=== PATIENT | male | born 1970 | race Caucasian/White ===

== ENCOUNTER → 2018-03-10 09:56 | Outpatient (CLI) | payer BC, SELFPAY ==
[2018-03-10 10:59] LABS: Add Manual Diff / Slide Review NO; Basophils Percent Auto 0.8 % (0-2); Eosinophils Percent Auto 0.3 % (2-4); Hematocrit 44.8 % (41-53); Hemoglobin 15.7 g/dL (13.5-17.5); Lymphocytes Percent Auto 16.5 % (25-40); Mean Corpuscular HGB Conc 35.1 % (30-36); Mean Corpuscular Hemoglobin 33.2 PG (26-34); Mean Corpuscular Volume 94.5 fL (80-100); Monocytes Percent Auto 6.7 % (3-14); Neutrophils Absolute Auto 4100 /uL (3000-5900); Neutrophils Percent Auto 75.7 % (50-75); Platelet Count 242 X10^3/uL (150-400); Red Blood Cell Count 4.74 X10^6/uL (4.5-5.9); Red Cell Distribution Width 12.9 % (11.6-14.8); White Blood Cell Count 5.3 X10^3/uL (4.5-11.0)
[2018-03-10 11:14] LABS: Alanine Aminotransferase 44 IU/L (21-72); Albumin 4.4 g/dL (3.5-5.0); Albumin Globulin Ratio 1.8 (1.0-2.8); Alkaline Phosphatase 78 U/L (38-126); Aspartate Aminotransferase 23 IU/L (17-59); BUN Creatinine Ratio 12.2 (6-22); Bilirubin Total 0.6 mg/dL (0.2-1.3); Blood Urea Nitrogen 11 mg/dL (9-20); Calcium 9.5 mg/dL (8.4-10.2); Carbon Dioxide 26 mmol/L (22-32); Chloride 102 mmol/L (98-107); Estimated Glomerular Filt Rate > 60.0 mL/min (>60); Globulin 2.4 g/dL (1.7-4.1); Glucose 92 mg/dL (70-100); HEMOLYSIS < 15 (0-50); Potassium 4.8 mmol/L (3.4-5.1); Sodium 140 mmol/L (137-145); Total Protein 6.8 g/dL (6.3-8.2)
[2018-03-10 11:18] LABS: C-Reactive Protein Quant < 0.5 mg/dL (<1.0)
[2018-03-10 11:24] LABS: Erythrocyte Sedimentation Rate 1 MM/HR (0-15)
== END ==
PROVIDERS: PCP Family Medicine; Visit Provider Internal Medicine Rheumatology
DX: L40.50 Arthropathic psoriasis, unspecified (principal); Z79.899 Other long term (current) drug therapy
CPT/HCPCS: 36415; 80053; 85025; 85651; 86140

== ENCOUNTER → 2018-06-22 07:21 | Outpatient (CLI) | payer BC, SELFPAY ==
[2018-06-22 07:48] LABS: Add Manual Diff / Slide Review NO; Basophils Percent Auto 0.5 % (0-2); Eosinophils Percent Auto 0.6 % (2-4); Hematocrit 44.6 % (41-53); Hemoglobin 15.5 g/dL (13.5-17.5); Lymphocytes Percent Auto 20.6 % (25-40); Mean Corpuscular HGB Conc 34.8 % (30-36); Mean Corpuscular Hemoglobin 33.1 PG (26-34); Monocytes Percent Auto 6.7 % (3-14); Neutrophils Absolute Auto 3000 /uL (3000-5900); Neutrophils Percent Auto 71.6 % (50-75); Platelet Count 242 X10^3/uL (150-400); Red Blood Cell Count 4.69 X10^6/uL (4.5-5.9); Red Cell Distribution Width 13.2 % (11.6-14.8); White Blood Cell Count 4.2 X10^3/uL (4.5-11.0)
[2018-06-22 08:06] LABS: Alanine Aminotransferase 36 IU/L (21-72); Albumin 4.2 g/dL (3.5-5.0); Albumin Globulin Ratio 1.8 (1.0-2.8); Alkaline Phosphatase 72 U/L (38-126); Aspartate Aminotransferase 23 IU/L (17-59); BUN Creatinine Ratio 11.1 (6-22); Bilirubin Total 0.8 mg/dL (0.2-1.3); Blood Urea Nitrogen 10 mg/dL (9-20); Calcium 8.7 mg/dL (8.4-10.2); Carbon Dioxide 33 mmol/L (22-32); Chloride 102 mmol/L (98-107); Estimated Glomerular Filt Rate > 60.0 mL/min (>60); Globulin 2.4 g/dL (1.7-4.1); Glucose 158 mg/dL (70-100); HEMOLYSIS < 15 (0-50); Potassium 4.5 mmol/L (3.4-5.1); Sodium 142 mmol/L (137-145); Total Protein 6.6 g/dL (6.3-8.2)
[2018-06-22 08:07] LABS: C-Reactive Protein Quant < 0.5 mg/dL (<1.0)
[2018-06-22 08:26] LABS: Erythrocyte Sedimentation Rate 2 MM/HR (0-15)
== END ==
PROVIDERS: PCP Family Medicine; Visit Provider Nurse Practitioner
DX: L40.50 Arthropathic psoriasis, unspecified (principal); Z79.899 Other long term (current) drug therapy
CPT/HCPCS: 36415; 80053; 85025; 85651; 86140

== ENCOUNTER → 2018-10-08 07:11 | Outpatient (CLI) | payer BC, SELFPAY ==
[2018-10-08 07:45] LABS: Add Manual Diff / Slide Review NO; Basophils Percent Auto 0.5 % (0-2); Eosinophils Percent Auto 0.8 % (2-4); Hematocrit 46.4 % (41-53); Lymphocytes Percent Auto 24.9 % (25-40); Mean Corpuscular HGB Conc 34.6 % (30-36); Mean Corpuscular Hemoglobin 32.5 PG (26-34); Mean Corpuscular Volume 93.8 fL (80-100); Monocytes Percent Auto 8.7 % (3-14); Neutrophils Absolute Auto 3100 /uL (1500-7000); Neutrophils Percent Auto 65.1 % (50-75); Platelet Count 228 X10^3/uL (150-400); Red Blood Cell Count 4.94 X10^6/uL (4.5-5.9); Red Cell Distribution Width 12.9 % (11.6-14.8); White Blood Cell Count 4.8 X10^3/uL (4.5-11.0)
[2018-10-08 07:56] LABS: Alanine Aminotransferase 53 IU/L (21-72); Albumin 4.4 g/dL (3.5-5.0); Albumin Globulin Ratio 1.6 (1.0-2.8); Alkaline Phosphatase 68 U/L (38-126); Aspartate Aminotransferase 33 IU/L (17-59); BUN Creatinine Ratio 13.3 (6-22); Bilirubin Total 0.6 mg/dL (0.2-1.3); Blood Urea Nitrogen 12 mg/dL (9-20); Calcium 8.9 mg/dL (8.4-10.2); Carbon Dioxide 27 mmol/L (22-32); Chloride 105 mmol/L (98-107); Estimated Glomerular Filt Rate > 60.0 mL/min (>60); Globulin 2.7 g/dL (1.7-4.1); Glucose 117 mg/dL (70-100); HEMOLYSIS < 15 (0-50); Potassium 3.8 mmol/L (3.4-5.1); Sodium 140 mmol/L (137-145); Total Protein 7.1 g/dL (6.3-8.2)
[2018-10-08 08:04] LABS: C-Reactive Protein Quant < 0.5 mg/dL (<1.0)
[2018-10-08 08:21] LABS: Erythrocyte Sedimentation Rate 1 MM/HR (0-15)
== END ==
PROVIDERS: Family Provider Family Medicine; PCP Family Medicine; Visit Provider Internal Medicine Rheumatology
DX: L40.50 Arthropathic psoriasis, unspecified (principal); Z79.899 Other long term (current) drug therapy
CPT/HCPCS: 36415; 80053; 85025; 85651; 86140

== ENCOUNTER → 2018-12-29 08:06 | Outpatient (CLI) | payer BC, SELFPAY ==
[2018-12-29 08:43] LABS: Add Manual Diff / Slide Review NO; Basophils Absolute Auto 0 /uL (0-100); Basophils Percent Auto 0.6 % (0-2); Eosinophils Absolute Auto 0 /uL (0-450); Eosinophils Percent Auto 0.9 % (2-4); Hematocrit 47.5 % (41-53); Hemoglobin 16.6 g/dL (13.5-17.5); Lymphocytes Absolute Auto 1100 /uL (1100-4500); Lymphocytes Percent Auto 21.1 % (25-40); Mean Corpuscular Hemoglobin 32.7 PG (26-34); Mean Corpuscular Volume 93.6 fL (80-100); Monocytes Absolute Auto 400 /uL (0-900); Monocytes Percent Auto 7.9 % (3-14); Neutrophils Absolute Auto 3700 /uL (1500-7000); Neutrophils Percent Auto 69.5 % (50-75); Platelet Count 231 X10^3/uL (150-400); Red Blood Cell Count 5.07 X10^6/uL (4.5-5.9); Red Cell Distribution Width 13.8 % (11.6-14.8); White Blood Cell Count 5.4 X10^3/uL (4.5-11.0)
[2018-12-29 08:56] LABS: Alanine Aminotransferase 32 IU/L (21-72); Albumin 4.4 g/dL (3.5-5.0); Albumin Globulin Ratio 1.8 (1.0-2.8); Alkaline Phosphatase 72 U/L (38-126); Aspartate Aminotransferase 20 IU/L (17-59); Bilirubin Total 0.5 mg/dL (0.2-1.3); Blood Urea Nitrogen 20 mg/dL (9-20); Carbon Dioxide 27 mmol/L (22-32); Chloride 101 mmol/L (98-107); Estimated Glomerular Filt Rate > 60.0 mL/min (>60); Globulin 2.5 g/dL (1.7-4.1); Glucose 122 mg/dL (70-100); HEMOLYSIS 18 (0-50); Potassium 4.2 mmol/L (3.4-5.1); Sodium 139 mmol/L (137-145); Total Protein 6.9 g/dL (6.3-8.2)
[2018-12-29 09:02] LABS: C-Reactive Protein Quant < 0.5 mg/dL (<1.0)
[2018-12-29 09:06] LABS: Erythrocyte Sedimentation Rate 1 MM/HR (0-15)
== END ==
PROVIDERS: PCP Family Medicine; Visit Provider Internal Medicine Rheumatology
DX: L40.50 Arthropathic psoriasis, unspecified (principal); Z79.899 Other long term (current) drug therapy
CPT/HCPCS: 36415; 80053; 85025; 85651; 86140

== ENCOUNTER → 2019-04-27 09:24 | Outpatient (CLI) | payer BC, SELFPAY ==
[2019-04-27 09:44] LABS: Add Manual Diff / Slide Review NO; Basophils Absolute Auto 0 /uL (0-100); Basophils Percent Auto 0.3 % (0-2); Eosinophils Absolute Auto 0 /uL (0-450); Eosinophils Percent Auto 0.6 % (2-4); Hematocrit 47.6 % (41-53); Hemoglobin 16.7 g/dL (13.5-17.5); Lymphocytes Absolute Auto 1300 /uL (1100-4500); Lymphocytes Percent Auto 22.4 % (25-40); Mean Corpuscular Hemoglobin 32.8 PG (26-34); Mean Corpuscular Volume 93.7 fL (80-100); Monocytes Absolute Auto 500 /uL (0-900); Monocytes Percent Auto 8.5 % (3-14); Neutrophils Absolute Auto 4100 /uL (1500-7000); Neutrophils Percent Auto 68.2 % (50-75); Platelet Count 246 X10^3/uL (150-400); Red Blood Cell Count 5.08 X10^6/uL (4.5-5.9); Red Cell Distribution Width 13.3 % (11.6-14.8)
[2019-04-27 10:07] LABS: Erythrocyte Sedimentation Rate 1 MM/HR (0-15)
[2019-04-27 10:10] LABS: Alanine Aminotransferase 46 IU/L (21-72); Albumin 4.6 g/dL (3.5-5.0); Albumin Globulin Ratio 1.9 (1.0-2.8); Alkaline Phosphatase 71 U/L (38-126); Aspartate Aminotransferase 36 IU/L (17-59); BUN Creatinine Ratio 15.6 (6-22); Blood Urea Nitrogen 14 mg/dL (9-20); Calcium 9.3 mg/dL (8.4-10.2); Carbon Dioxide 27 mmol/L (22-32); Chloride 98 mmol/L (98-107); Estimated Glomerular Filt Rate > 60.0 mL/min (>60); Globulin 2.4 g/dL (1.7-4.1); Glucose 116 mg/dL (70-100); HEMOLYSIS 16 (0-50); Potassium 4.2 mmol/L (3.4-5.1); Sodium 137 mmol/L (137-145)
[2019-04-27 10:30] LABS: C-Reactive Protein Quant < 0.5 mg/dL (<1.0)
== END ==
PROVIDERS: PCP Family Medicine; Visit Provider Nurse Practitioner
DX: L40.50 Arthropathic psoriasis, unspecified (principal); Z79.899 Other long term (current) drug therapy
CPT/HCPCS: 36415; 80053; 85025; 85651; 86140

== ENCOUNTER → 2019-08-17 09:31 | Outpatient (CLI) | payer BC, SELFPAY ==
[2019-08-17 10:52] LABS: Add Manual Diff / Slide Review NO; Basophils Absolute Auto 0 /uL (0-100); Basophils Percent Auto 0.6 % (0-2); Eosinophils Absolute Auto 0 /uL (0-450); Eosinophils Percent Auto 0.5 % (2-4); Hematocrit 45.5 % (41-53); Hemoglobin 15.9 g/dL (13.5-17.5); Lymphocytes Absolute Auto 1100 /uL (1100-4500); Lymphocytes Percent Auto 25.1 % (25-40); Mean Corpuscular Hemoglobin 32.5 PG (26-34); Monocytes Absolute Auto 300 /uL (0-900); Monocytes Percent Auto 6.7 % (3-14); Neutrophils Absolute Auto 3000 /uL (1500-7000); Neutrophils Percent Auto 67.1 % (50-75); Platelet Count 263 X10^3/uL (150-400); Red Blood Cell Count 4.89 X10^6/uL (4.5-5.9); Red Cell Distribution Width 13.3 % (11.6-14.8); White Blood Cell Count 4.4 X10^3/uL (4.5-11.0)
[2019-08-17 11:02] LABS: Alanine Aminotransferase 35 IU/L (<50); Albumin 4.3 g/dL (3.5-5.0); Albumin Globulin Ratio 1.8 (1.0-2.8); Alkaline Phosphatase 62 U/L (38-126); Aspartate Aminotransferase 34 IU/L (17-59); BUN Creatinine Ratio 16.7 (6-22); Bilirubin Total 0.7 mg/dL (0.2-1.3); Blood Urea Nitrogen 15 mg/dL (9-20); Carbon Dioxide 29 mmol/L (22-32); Chloride 101 mmol/L (98-107); Estimated Glomerular Filt Rate > 60.0 mL/min (>60); Globulin 2.4 g/dL (1.7-4.1); Glucose 125 mg/dL (70-100); HEMOLYSIS 43 (0-50); Sodium 138 mmol/L (137-145); Total Protein 6.7 g/dL (6.3-8.2)
[2019-08-17 11:15] LABS: Erythrocyte Sedimentation Rate 1 MM/HR (0-15)
[2019-08-17 11:16] LABS: C-Reactive Protein Quant < 0.5 mg/dL (<1.0)
== END ==
PROVIDERS: PCP Family Medicine; Visit Provider Nurse Practitioner
DX: Z79.899 Other long term (current) drug therapy (principal); L40.50 Arthropathic psoriasis, unspecified
CPT/HCPCS: 36415; 80053; 85025; 85651; 86140

== ENCOUNTER → 2020-09-02 13:16 | Outpatient (CLI) | payer BC, SELFPAY ==
[2020-09-02 14:18] LABS: COVID19 -Nasal RAPID Negative (Negative)
== END ==
PROVIDERS: PCP Family Medicine; Visit Provider Physician Assistant
DX: Z11.59 Encounter for screening for other viral diseases (principal)
CPT/HCPCS: 87635

== ENCOUNTER 2020-09-04 12:44 | Day surgery (SDC) | payer BC, SELFPAY ==
--- NOTE | 2020-09-04 11:51 | P.HP_ITS ---
History of Present Illness History of Present Illness Date Patient Seen: 09/04/20 Chief complaint: SDC Narrative: 50 Years Old Male seen today for consideration of a screening colonoscopy. There have been no lower GI symptoms suggesting disease such as change in bowel habits, bleeding, abdominal pain or anemia. His mother has colon polyps. Overall health issues have been stable, including no major cardiac events for at least 6 weeks. 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 Children: Karrie (2002), April (2005) Occupation: [employer] Education: Masters 4-5 beers over the weekend Patient History Medical History Fatigue (~2017) Hypertension Hypogonadism, male Insomnia Obstructive sleep apnea (~01/2019) Psoriatic arthropathy Snoring (~2017) Family & Social History Tobacco & Substance use: Smoking Status Never smoker alcohol intake current Meds Home Medications and Allergies Home Medications Medication Instructions Recorded Confirmed Type chorionic gonadotropin, human 5,000 unit IM 2XW each 01/16/19 09/04/20 History 5,000 unit intramuscular solution methotrexate sodium 2.5 mg tablet 7.5 mg PO QWEEK tab 01/16/19 09/04/20 History testosterone cypionate 200 mg/mL 200 mg IM QWEEK 01/16/19 09/04/20 History intramuscular oil hydrochlorothiazide 25 mg tablet 25 mg PO DAILY #30 tab 04/17/20 09/04/20 Rx lisinopril 20 mg tablet 40 mg PO DAILY tab 04/17/20 09/04/20 History Allergies Allergy/AdvReac Type Severity Reaction Status Date / Time Penicillins Allergy Rash Verified 09/04/20 12:55 Review of Systems Review of Systems ROS: Yes All systems reviewed with the patient and are negative except as otherwise documented Exam Narrative Exam Narrative: GENERAL: Alert and oriented, appearing stated age and in no acute distress. HEENT: Head normocephalic/atraumatic. Pupils equal, round, and reactive to light and accomodation. Extraocular muscles intact. Tympanic membranes clear. Nasal mucosa moist, septum midline. Oral mucosa moist, no lesions. Neck soft and supple, no lymphadenopathy. LUNGS: Clear to ausculation bilaterally, no wheezes, rhonchi or rales. CV: Normal S1 and S2 with regular rate and rhythm, no audible murmurs, rubs or gallops. ABDOMEN: Soft, non-tender, non-distended, no organomegaly. Positive bowel sounds. EXTREMITIES: No clubbing, cyanosis, or edema. NEURO: Cranial nerves II through XII grossly intact, no focal deficits. PSYCH: Alert and oriented x 3. SKIN: No concerning lesions. Assessment & Plan Assessment & Plan narrative: 1. Family history of colon polyps 2. Screening for colon cancer Plan for colonoscopy. The nature and character of the procedure as well as anticipated results were discussed. The possibility of not completing the procedure was also discussed. Possible complications including aspiration pneumonia, bleeding, perforation and reaction to medications either for sedation or preparation and missed lesions were discussed. Questions were answered and proceeding to the colonoscopy was elected. Informed consent signed. I sincerely appreciate the referral allowing me to participate in this patient's care. Please contact me with any questions or concerns.
--- NOTE | 2020-09-04 11:53 | PM.OP.ENDO ---
Operative Date/Time/Diagnoses Date of procedure: 09/04/20 Procedure Notes SCOAP/Timeout: 1:41 p.m. Procedure in detail: ENDOSCOPIST: Rosaura Brian MD Sedation RN: Joanna Miller RN Sedation start time: 1:42 p.m. Sedation end time: 2:16 p.m. PROCEDURE: Colonoscopy INDICATIONS: 1. Family history of colon polyps 2. Screening for colon cancer MEDICATION: Levsin 0.125 mg sublingual, incremental doses of Versed and fentanyl until appropriate level sedation achieved. ASA CLASS: 2 CECAL WITHDRAWAL TIME: 9 minutes COMPLICATIONS: None. EXTENT OF PROCEDURE: Cecum. QUALITY OF PREP: Good with portions of liquid stool. PROCEDURE: Prior to insertion of the colonoscope, a digital rectal examination was accomplished with circumferential palpation of the distal rectal mucosa without significant findings being noted. The high-definition colonoscope was passed into the rectum in the usual fashion and advanced over to the cecum without difficulty. The ileocecal valve, appendiceal stoma, and medial wall all could be inspected and no abnormalities were seen. ASCENDING COLON: As the colonoscope was withdrawn, care was taken to expose and inspect the haustral folds and no abnormalities were seen. HEPATIC FLEXURE: Normal, no polyps, diverticula or other abnormalities. TRANSVERSE COLON: Normal, no polyps, diverticula or other abnormalities. DESCENDING COLON: Normal, no polyps, diverticula or other abnormalities. SIGMOID COLON: Normal, no polyps, diverticula or other abnormalities. RECTUM: Normal. J maneuver was produced. There was no significant perianal disease. The J maneuver was broken. The remainder of the rectum was inspected and there was no external hemorrhoid disease. The scope was withdrawn. IMPRESSION: 1. Normal colonoscopy PLAN: 1. Repeat colonoscopy in 5 years secondary to family history. The possibility of a missed lesion including a malignancy has been discussed with the patient previously. Potential alarm symptoms have been discussed and should be reported immediately.
[2020-09-04] MEDS: HYOSCYAMINE 0.125 MG TABLET PO (13:00)
[2020-09-04 13:01] VITALS: BP 148/87; PULSE 76; RESP 16; TEMP 36.6; O2SAT 100; BMI 26.9
[2020-09-04] MEDS: LACTATED RINGERS 1,000 ML 200 ML IV (13:08)
[2020-09-04] MEDS: MIDAZOLAM 5 MG/5 ML VIAL IV (14:02)
[2020-09-04] MEDS: fentaNYL 250 MCG/5 ML INJ IV (14:02)
[2020-09-04 14:25] VITALS: BP 119/66; PULSE 68; RESP 18; TEMP 36.6; O2SAT 97
[2020-09-04 14:30] VITALS: BP 121/68; PULSE 76; RESP 14; O2SAT 95
[2020-09-04 14:35] VITALS: BP 122/72; PULSE 80; RESP 12; O2SAT 97
[2020-09-04 14:37] VITALS: BP 128/71; PULSE 79; RESP 14; TEMP 36.5; O2SAT 96
== END 2020-09-04 14:57 | disposition home or self-care (01) ==
PROVIDERS: PCP Family Medicine; Referring Provider Student in an Organized Health Care Education/Training Program; Visit Provider Student in an Organized Health Care Education/Training Program
PROC: 0DJD8ZZ Inspection of Lower Intestinal Tract, Via Natural or Artificial Opening Endoscopic (ICD-10-PCS; CPT 45378; principal; 2020-09-04 13:45)
DX: Z12.11 Encounter for screening for malignant neoplasm of colon (principal); Z83.71 Family history of colonic polyps
CPT/HCPCS: 45378; J2250; J3010

== ENCOUNTER → 2020-12-10 07:47 | Outpatient (CLI) | payer BC, SELFPAY ==
[2020-12-10] MEDS: COVID-19 VACC, Ad26(JANSSEN)/PF 0.5 ML IM (07:53)
== END ==
PROVIDERS: PCP Family Medicine; Visit Provider Internal Medicine
DX: Z23 Encounter for immunization (principal)
CPT/HCPCS: 0031A; 91303

== ENCOUNTER → 2021-07-05 07:14 | Outpatient (CLI) | payer BC, SELFPAY ==
[2021-07-05 08:11] LABS: Add Manual Diff / Slide Review NO; Basophils Absolute Auto 0 /uL (0-100); Basophils Percent Auto 0.5 % (0-2); Eosinophils Absolute Auto 0 /uL (0-450); Hemoglobin 17.1 g/dL (13.5-17.5); Lymphocytes Absolute Auto 1300 /uL (1100-4500); Lymphocytes Percent Auto 30.6 % (25-40); Mean Corpuscular HGB Conc 34.2 % (30-36); Mean Corpuscular Hemoglobin 31.9 PG (26-34); Mean Corpuscular Volume 93.2 fL (80-100); Monocytes Absolute Auto 400 /uL (0-900); Neutrophils Absolute Auto 2600 /uL (1500-7000); Neutrophils Percent Auto 58.9 % (50-75); Platelet Count 206 X10^3/uL (150-400); Red Blood Cell Count 5.36 X10^6/uL (4.5-5.9); Red Cell Distribution Width 12.8 % (11.6-14.8); White Blood Cell Count 4.4 X10^3/uL (4.5-11.0)
[2021-07-05 08:37] LABS: Alanine Aminotransferase 37 IU/L (<50); Albumin 4.3 g/dL (3.5-5.0); Albumin Globulin Ratio 1.8 (1.0-2.8); Alkaline Phosphatase 75 U/L (38-126); Aspartate Aminotransferase 31 IU/L (17-59); BUN Creatinine Ratio 14.3 (6-22); Bilirubin Total 0.6 mg/dL (0.2-1.3); Blood Urea Nitrogen 15 mg/dL (9-20); Calcium 9.6 mg/dL (8.4-10.2); Carbon Dioxide 31 mmol/L (22-32); Chloride 101 mmol/L (98-107); Estimated Glomerular Filt Rate > 60.0 mL/min (>60); Globulin 2.4 g/dL (1.7-4.1); Glucose 112 mg/dL (70-100); HEMOLYSIS 18 (0-50); Sodium 140 mmol/L (137-145); Total Protein 6.7 g/dL (6.3-8.2)
== END ==
PROVIDERS: PCP Family Medicine; Referring Provider Physician Assistant; Visit Provider Physician Assistant
DX: L40.0 Psoriasis vulgaris (principal)
CPT/HCPCS: 36415; 80053; 85025

== ENCOUNTER → 2021-08-25 09:23 | Outpatient (CLI) | payer BC, SELFPAY ==
--- NOTE | 2021-08-25 | DI.RAD.S_ITS ---
PROCEDURE: XR KNEE LT 3V INDICATIONS: LEFT MEDIAL KNEE PAIN TECHNIQUE: 3 views of the knee were acquired. COMPARISON: None. FINDINGS: Bones: No fractures or dislocations. Superior patellar enthesophyte. No suspicious bony lesions. Soft tissues: Trace joint effusion. No suspicious soft tissue calcifications. IMPRESSION: No significant abnormality. Dictated by: Gilberto Turner M.D. on 08/25/2021 at 10:02 Approved by: Gilberto Turner M.D. on 08/25/2021 at 10:04
== END ==
PROVIDERS: PCP Family Medicine; Referring Provider Family Medicine; Visit Provider Family Medicine
DX: M25.562 Pain in left knee (principal)
CPT/HCPCS: 73562

== ENCOUNTER → 2022-04-30 08:25 | Outpatient (CLI) | payer BC, SELFPAY ==
[2022-04-30 09:21] LABS: Add Manual Diff / Slide Review NO; Basophils Absolute Auto 0 /uL (0-100); Basophils Percent Auto 0.6 % (0-2); Eosinophils Absolute Auto 0 /uL (0-450); Eosinophils Percent Auto 0.6 % (2-4); Hematocrit 48.4 % (41-53); Hemoglobin 16.8 g/dL (13.5-17.5); Lymphocytes Absolute Auto 1200 /uL (1100-4500); Lymphocytes Percent Auto 20.1 % (25-40); Mean Corpuscular HGB Conc 34.8 % (30-36); Mean Corpuscular Hemoglobin 31.9 PG (26-34); Mean Corpuscular Volume 91.6 fL (80-100); Monocytes Absolute Auto 500 /uL (0-900); Monocytes Percent Auto 8.1 % (3-14); Neutrophils Absolute Auto 4200 /uL (1500-7000); Neutrophils Percent Auto 70.6 % (50-75); Platelet Count 204 X10^3/uL (150-400); Red Blood Cell Count 5.28 X10^6/uL (4.5-5.9); Red Cell Distribution Width 13.1 % (11.6-14.8); White Blood Cell Count 5.9 X10^3/uL (4.5-11.0)
[2022-04-30 09:34] LABS: Alanine Aminotransferase 51 IU/L (<50); Albumin 4.6 g/dL (3.5-5.0); Alkaline Phosphatase 70 U/L (38-126); Aspartate Aminotransferase 28 IU/L (17-59); Bilirubin Total 1.1 mg/dL (0.2-1.3); Blood Urea Nitrogen 16 mg/dL (9-20); Calcium 9.2 mg/dL (8.4-10.2); Carbon Dioxide 25 mmol/L (22-32); Chloride 103 mmol/L (98-107); Estimated Glomerular Filt Rate > 60 mL/min (>60); Globulin 2.3 g/dL (1.7-4.1); Glucose 105 mg/dL (70-100); HEMOLYSIS 17 (0-50); Potassium 4.4 mmol/L (3.4-5.1); Sodium 136 mmol/L (137-145); Total Protein 6.9 g/dL (6.3-8.2)
[2022-05-04 13:36] LABS: QuantiFERON Mitogen Value >10.00 IU/mL (.); QuantiFERON Nil Value 0.01 IU/mL (.); QuantiFERON TB Gold Plus Negative (Negative); QuantiFERON TB1 Ag Value 0.01 IU/mL (.); QuantiFERON TB2 Ag Value 0.01 IU/mL (.)
== END ==
PROVIDERS: PCP Family Medicine; Visit Provider Physician Assistant
DX: L40.0 Psoriasis vulgaris (principal); L40.59 Other psoriatic arthropathy
CPT/HCPCS: 36415; 80053; 85025; 86480

== ENCOUNTER → 2022-11-12 08:23 | Outpatient (CLI) | payer BC, SELFPAY ==
[2022-11-12 09:38] LABS: Alanine Aminotransferase 33 IU/L (<50); Albumin 4.5 g/dL (3.5-5.0); Albumin Globulin Ratio 1.8 (1.0-2.8); Alkaline Phosphatase 75 U/L (38-126); Aspartate Aminotransferase 22 IU/L (17-59); BUN Creatinine Ratio 15.1 (6-22); Bilirubin Total 0.8 mg/dL (0.2-1.3); Blood Urea Nitrogen 14 mg/dL (9-20); Carbon Dioxide 26 mmol/L (22-32); Chloride 100 mmol/L (98-107); Cholesterol 163 mg/dL (140-199); Estimated Glomerular Filt Rate > 60 mL/min (>60); Globulin 2.5 g/dL (1.7-4.1); Glucose 102 mg/dL (70-100); HDL Cholesterol 43 mg/dL (40-60); HEMOLYSIS < 15 (0-50); LDL Cholesterol Calculated 96 mg/dL (<100); Potassium 4.3 mmol/L (3.4-5.1); Sodium 136 mmol/L (137-145); Triglycerides 119 mg/dL (35-150)
== END ==
PROVIDERS: PCP Family Medicine; Referring Provider Physician Assistant; Visit Provider Physician Assistant
DX: L40.0 Psoriasis vulgaris (principal); L40.59 Other psoriatic arthropathy; Z79.899 Other long term (current) drug therapy
CPT/HCPCS: 36415; 80053; 80061

== ENCOUNTER → 2023-01-07 08:15 | Outpatient (CLI) | payer BC, SELFPAY ==
[2023-01-07 09:03] LABS: Add Manual Diff / Slide Review NO; Basophils Absolute Auto 0 /uL (0-100); Basophils Percent Auto 0.8 % (0-2); Eosinophils Absolute Auto 100 /uL (0-450); Eosinophils Percent Auto 2.3 % (2-4); Hematocrit 48.5 % (41-53); Lymphocytes Absolute Auto 1300 /uL (1100-4500); Lymphocytes Percent Auto 25.7 % (25-40); Mean Corpuscular Hemoglobin 31.8 PG (26-34); Mean Corpuscular Volume 91.1 fL (80-100); Monocytes Absolute Auto 400 /uL (0-900); Monocytes Percent Auto 8.5 % (3-14); Neutrophils Absolute Auto 3200 /uL (1500-7000); Neutrophils Percent Auto 62.7 % (50-75); Platelet Count 228 X10^3/uL (150-400); Red Blood Cell Count 5.33 X10^6/uL (4.5-5.9); Red Cell Distribution Width 13.2 % (11.6-14.8); White Blood Cell Count 5.1 X10^3/uL (4.5-11.0)
== END ==
PROVIDERS: PCP Family Medicine; Referring Provider Physician Assistant; Visit Provider Physician Assistant
DX: L40.0 Psoriasis vulgaris (principal); L40.59 Other psoriatic arthropathy; Z79.899 Other long term (current) drug therapy
CPT/HCPCS: 85025

== ENCOUNTER → 2023-05-09 07:26 | Outpatient (CLI) | payer BC, SELFPAY ==
[2023-05-09 08:14] LABS: Add Manual Diff / Slide Review NO; Basophils Absolute Auto 0 /uL (0-100); Basophils Percent Auto 0.6 % (0-2); Eosinophils Absolute Auto 0 /uL (0-450); Eosinophils Percent Auto 1.1 % (2-4); Hematocrit 48.7 % (41-53); Hemoglobin 17.4 g/dL (13.5-17.5); Lymphocytes Absolute Auto 1300 /uL (1100-4500); Lymphocytes Percent Auto 30.2 % (25-40); Mean Corpuscular HGB Conc 35.7 % (30-36); Mean Corpuscular Hemoglobin 32.6 PG (26-34); Mean Corpuscular Volume 91.5 fL (80-100); Monocytes Absolute Auto 500 /uL (0-900); Monocytes Percent Auto 11.9 % (3-14); Neutrophils Absolute Auto 2500 /uL (1500-7000); Neutrophils Percent Auto 56.2 % (50-75); Platelet Count 207 X10^3/uL (150-400); Red Blood Cell Count 5.32 X10^6/uL (4.5-5.9); Red Cell Distribution Width 13.5 % (11.6-14.8); White Blood Cell Count 4.5 X10^3/uL (4.5-11.0)
[2023-05-09 08:51] LABS: Alanine Aminotransferase 40 IU/L (<50); Albumin 4.3 g/dL (3.5-5.0); Albumin Globulin Ratio 1.5 (1.0-2.8); Alkaline Phosphatase 77 U/L (38-126); Aspartate Aminotransferase 31 IU/L (17-59); BUN Creatinine Ratio 15.2 (6-22); Bilirubin Total 0.9 mg/dL (0.2-1.3); Blood Urea Nitrogen 14 mg/dL (9-20); Calcium 9.2 mg/dL (8.4-10.2); Carbon Dioxide 28 mmol/L (22-32); Chloride 100 mmol/L (98-107); Estimated Glomerular Filt Rate > 60 mL/min (>60); Globulin 2.8 g/dL (1.7-4.1); Glucose 102 mg/dL (70-100); HEMOLYSIS < 15 (0-50); Potassium 4.2 mmol/L (3.4-5.1); Sodium 134 mmol/L (137-145); Total Protein 7.1 g/dL (6.3-8.2)
[2023-05-11 14:41] LABS: QuantiFERON Mitogen Value >10.00 IU/mL (.); QuantiFERON Nil Value 0.03 IU/mL (.); QuantiFERON TB Gold Plus Negative (Negative); QuantiFERON TB1 Ag Value 0.04 IU/mL (.); QuantiFERON TB2 Ag Value 0.04 IU/mL (.)
== END ==
PROVIDERS: PCP Family Medicine; Referring Provider Physician Assistant; Visit Provider Physician Assistant
DX: L40.0 Psoriasis vulgaris (principal); L40.59 Other psoriatic arthropathy; Z79.899 Other long term (current) drug therapy
CPT/HCPCS: 36415; 80053; 85025; 86480

== ENCOUNTER → 2024-04-03 13:24 | Outpatient (CLI) | payer BC, SELFPAY ==
[2024-04-03 14:42] LABS: Add Manual Diff / Slide Review NO; Basophils Absolute Auto 0 /uL (0-100); Basophils Percent Auto 0.6 % (0-2); Eosinophils Absolute Auto 0 /uL (0-450); Eosinophils Percent Auto 0.7 % (2-4); Hematocrit 47.7 % (41-53); Hemoglobin 16.9 g/dL (13.5-17.5); Lymphocytes Absolute Auto 1300 /uL (1100-4500); Lymphocytes Percent Auto 25.8 % (25-40); Mean Corpuscular HGB Conc 35.4 % (30-36); Mean Corpuscular Volume 93.1 fL (80-100); Monocytes Absolute Auto 500 /uL (0-900); Monocytes Percent Auto 10.1 % (3-14); Neutrophils Absolute Auto 3100 /uL (1500-7000); Neutrophils Percent Auto 62.8 % (50-75); Platelet Count 222 X10^3/uL (150-400); Red Blood Cell Count 5.12 X10^6/uL (4.5-5.9); Red Cell Distribution Width 12.9 % (11.6-14.8)
[2024-04-03 14:43] LABS: Alanine Aminotransferase 31 IU/L (<50); Albumin 4.5 g/dL (3.5-5.0); Albumin Globulin Ratio 1.7 (1.0-2.8); Alkaline Phosphatase 81 U/L (38-126); Aspartate Aminotransferase 28 IU/L (17-59); BUN Creatinine Ratio 15.7 (6-22); Bilirubin Total 0.5 mg/dL (0.2-1.3); Blood Urea Nitrogen 16 mg/dL (9-20); Calcium 9.3 mg/dL (8.4-10.2); Carbon Dioxide 29 mmol/L (22-32); Chloride 102 mmol/L (98-107); Estimated Glomerular Filt Rate > 60 mL/min (>60); Globulin 2.6 g/dL (1.7-4.1); Glucose 89 mg/dL (70-100); HEMOLYSIS < 15 (0-50); Potassium 4.1 mmol/L (3.4-5.1); Sodium 139 mmol/L (137-145); Total Protein 7.1 g/dL (6.3-8.2)
== END ==
PROVIDERS: PCP Family Medicine; Referring Provider Physician Assistant; Visit Provider Physician Assistant
DX: L40.0 Psoriasis vulgaris (principal)
CPT/HCPCS: 36415; 80053; 85025; 86480

== ENCOUNTER → 2024-09-20 08:20 | Outpatient (CLI) | payer BC, SELFPAY ==
--- NOTE | 2024-09-20 | DI.RAD.S_ITS ---
PROCEDURE: XR LUMBAR SPINE MIN 4V INDICATIONS: chronic bilateral low back pain without sciatica TECHNIQUE: 5 views of the lumbar spine were acquired, including bilateral oblique views. COMPARISON: None. FINDINGS: Bones: 5 nonrib-bearing vertebrae are present. Mild dextrocurvature. No vertebral body compression fractures. No suspicious bony lesions. There is multilevel facet arthropathy, worse at L4-5 and L5-S1. Mild multilevel disc height loss with degenerative endplate changes and spurring is present. Soft tissues: Overlying bowel gas pattern is normal. No suspicious soft tissue calcifications. Oblique images: No pars defects. IMPRESSION: Mild degenerative changes of the lumbar spine. Dictated by: Cristopher Zhou M.D. on 09/20/2024 at 10:07 Approved by: Cristopher Zhou M.D. on 09/20/2024 at 10:07
== END ==
LOC: RAD 08:21
PROVIDERS: Family Provider Family Medicine; PCP Family Medicine; Referring Provider Family Medicine; Visit Provider Family Medicine
DX: M47.816 Spondylosis without myelopathy or radiculopathy, lumbar region (principal); M47.817 Spondylosis without myelopathy or radiculopathy, lumbosacral region; M54.50 Low back pain, unspecified; G89.29 Other chronic pain
CPT/HCPCS: 72110

== ENCOUNTER 2024-10-25 15:15 | Outpatient (RCR) | payer BC, SELFPAY ==
--- NOTE | 2024-10-16 16:00 | PT.OPPOC ---
Physical, Occupational & Speech Therapy At [facility] Current Diagnoses Other chronic pain (10/16/24) Low back pain, unspecified (10/16/24) Visit Care Team Role Provider Type Dav Lomeli MD Attending Provider Physician Family Provider Primary Care Provider Referring Provider Specialty: Family Practice Address: [address] [place] [address], [facility] Email: [email or web address] Plan Of Care PT-OP-B Current Condition Start: 10/16/24 17:16 Freq: Status: Active Protocol: Document 10/16/24 15:15 DCW (Rec: 10/16/24 17:48 DCW [id number]) Current Condition History of Current Condition Onset Date Six months Current Complaints Low back pain/tightness, occasional left radicular pain History of Current Condition Pt is a 54 year old male presenting with a multi-year history of low back pain, however episodes have become more severe and more frequent over the past six months. Pt reports he used to gave episodes of low back pain about once a year, it would be sore for a few days, and then I'd get over it. Reports that since last April, when he had a bad episode, it has felt much more stiff and sore consistently, with more frequent episodes of flare-ups , in addition to occasional radicular symptoms in his left . 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 LTG Duration 12/14/24 One Impairment Pt does not have an appropriate HEP Short Term Goal (STG) Pt to be independent and compliant with an appropriate HEP STG Duration 11/16/24 Assessment Summary Assessment Pt presents with signs and symptoms consistent with referring diagnosis. Pt exhibits increased lumbar paraspinal tone, hip stiffness , and general core instability . Pt overall very active and motivated to perform independent HEP. Will likely benefit from relatively short course of skilled therapeutic intervention to improve lumbar mobility, decrease tone, and learn techniques to use abdominal bracing for functional movements. Physical Therapy Plan Frequency and Duration Frequency of Treatment 2x/Week Plan of Care Start Date 10/16/24 Plan of Care End Date 12/14/24 Therapeutic Interventions Therapeutic Interventions Home Exercise Program,Joint Mobilizations,Manual Therapy, Neuromuscular Re-education, Patient/Caregiver Education, Self-Care/Home Management,Soft Tissue Mobilization, Therapeutic Activities, Therapeutic Exercises Next Visit Focus/Plan Next Note Type Treatment Note Next Visit Plan Lumbar mobility, hip flexibility, progression of HEP Plan of Care Dates Plan of Care Start Date 10/16/24 Plan of Care End Date 12/14/24 Electronically Signed by: Nadir Selby, PT 10/17/24 0936 If you are in agreement with this Plan of Care, please return a signed and dated copy. I have reviewed this Plan of Care and certify that the skilled therapy services above are required to meet the patient?s needs. Physician Signature Date Printed Name and Credentials Clinical Instructor Signature Printed Name and Credentials
--- NOTE | 2024-10-16 16:00 | PT.OIE ---
Current Diagnoses Other chronic pain (10/16/24) Low back pain, unspecified (10/16/24) Past Medical History (Last Reviewed 08/02/21 @ 10:29 by Dav Tam MD) Fatigue (~2017) Hypertension Hypogonadism, male Insomnia Obstructive sleep apnea (~01/2019) Psoriatic arthropathy Snoring (~2017) Visit Care Team Role Provider Type Dav Lomeli MD Attending Provider Physician Family Provider Primary Care Provider Referring Provider Specialty: Family Practice Address: [address] [place] [address], [place], [place], [facility] Email: [email or web address] Physical Therapy Initial Evaluation PT-OP-A Visit Information Start: 10/16/24 17:16 Freq: Status: Active Protocol: Document 10/16/24 15:15 DCW (Rec: 10/16/24 17:48 DCW [id number]) Out-Patient Physical Therapy Visit Information Visit Information Visit Type Initial Evaluation Visit Start Time 15:15 Visit Stop Time 16:00 Visit Number 1 Number of 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 Pt reports he used to gave episodes of low back pain about once a year, it would be sore for a few days, and then I'd get over it. Reports that since last April, when he had a bad episode, it has felt much more stiff and sore consistently, with more frequent episodes of flare-ups , in addition to occasional radicular symptoms in his left . 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 PT-OP-C Subjective Start: 10/16/24 17:16 Freq: Status: Active Protocol: Document 10/16/24 15:15 DCW (Rec: 10/16/24 17:48 DCW [id number]) OP-PT Subjective Patient Comments Patient Comments Now it's just constantly a little bit tight. Patient Questionnaires Oswestry Low Back Index Oswestry Score 8/50 = 16% PT-OP-F Manual Assessment Start: 10/16/24 17:16 Freq: Status: Active Protocol: Document 10/16/24 15:15 DCW (Rec: 10/16/24 17:48 DCW [id number]) Manual Assessments Soft Tissue Assessment Soft Tissue Mobility Assessment Moderate tone with tenderness to palpation 2/4: Pain with wincing along lumbar paraspinals, bilateral piriformis Joint Mobility Assessment Joint Mobility Assessment Mild lumbar hypomobility PT-OP-L Special Tests Start: 10/16/24 17:16 Freq: Status: Active Protocol: Document 10/16/24 15:15 DCW (Rec: 10/16/24 17:48 DCW [id number]) Special Tests Lumbar Spine Special Tests EASU Test Results Positive L ipsilateral pain Straight Leg Raise Test Results Negative Slump Test Results Negative Compression Test Results Negative A-P Shearing Test Results Negative PT-OP-M Strength Start: 10/16/24 17:16 Freq: Status: Active Protocol: Document 10/16/24 15:15 DCW (Rec: 10/16/24 17:48 DCW [id number]) Hip Strength Hip Manual Muscle Testing Right Flexion (L2) 5 Normal Abduction 5 Normal Adduction 5 Normal External Rotation 5 Normal Internal Rotation 5 Normal Left Flexion (L2) 5 Normal Abduction 5 Normal Adduction 5 Normal External Rotation 5 Normal Internal Rotation 5 Normal PT-OP-Q Treatments Start: 10/16/24 17:16 Freq: Status: Active Protocol: Document 10/16/24 15:15 DCW (Rec: 10/16/24 17:48 DCW [id number]) Therapeutic Exercises Supine Exercises LTR Supine Exercise Name LTR Sidelying Exercises Open Book Sidelying Exercise Name Open Book Sitting Exercises Piriformis Sitting Exercise Name Seated Figure-4 Trunk Flexion Sitting Exercise Name Trunk Flexion Stretch Standing Exercises Pallof Stretch Standing Exercise Name Pallof Stretch Resistance Lv 3 PT-OP-T Assessment and Plan Start: 10/16/24 17:16 Freq: Status: Active Protocol: Document 10/16/24 15:15 DCW (Rec: 10/16/24 17:54 DCW [id number]) Physical Therapy Assessment Rehab Potential Rehabilitation Potential Excellent Evaluation Complexity Number of Personal Factors/Comorbidities 1-2 Number of Body Systems Impaired 4 or More Clinical Presentation at Evaluation Evolving Impairments Impairments Functional Activities, Functional Mobility,Pain,Soft Tissue Mobility,Tone Goals Two Impairment Pt experiences occasional radicular left leg pain Longterm Goal (LTG) Pt to deny any instances of left-sided radicular pain over a one month time period. LTG Duration 12/14/24 One Impairment Pt does not have an appropriate HEP Short Term Goal (STG) Pt to be independent and compliant with an appropriate HEP STG Duration 11/16/24 Assessment Summary Assessment Pt presents with signs and symptoms consistent with referring diagnosis. Pt exhibits increased lumbar paraspinal tone, hip stiffness , and general core instability. Pt overall very active and motivated to perform independent HEP. Will likely benefit from relatively short course of skilled therapeutic intervention to improve lumbar mobility, decrease tone, and learn techniques to use abdominal bracing fro functional movements. Physical Therapy Plan Frequency and Duration Frequency of Treatment 2x/Week Plan of Care Start Date 10/16/24 Plan of Care End Date 12/14/24 Therapeutic Interventions Therapeutic Interventions Home Exercise Program,Joint Mobilizations,Manual Therapy, Neuromuscular Re-education, Patient/Caregiver Education, Self-Care/Home Management,Soft Tissue Mobilization, Therapeutic Activities, Therapeutic Exercises Next Visit Focus/Plan Next Note Type Treatment Note Next Visit Plan Lumbar mobility, hip flexibility, progression of HEP
--- NOTE | 2024-10-18 12:16 | PT.OTN ---
Current Diagnoses Other chronic pain (10/18/24) Low back pain, unspecified (10/18/24) Physical Therapy Treatment Note PT-OP-A Visit Information Start: 10/16/24 17:16 Freq: Status: Active Protocol: Document 10/18/24 11:30 DCW (Rec: 10/18/24 12:16 DCW [id number]) Out-Patient Physical Therapy Visit Information Visit Information Visit Type Treatment Note Visit Start Time 11:30 Visit Stop Time 12:15 Visit Number 2 Number of DROSSER Visits 0 Evaluation Information Evaluation Date 10/16/24 PT-OP-B Current Condition Start: 10/16/24 17:16 Freq: Status: Active Protocol: Document 10/16/24 15:15 DCW (Rec: 10/16/24 17:48 DCW [id number]) Current Condition History of Current Condition Onset Date Six months Current Complaints Low back pain/tightness, occasional left radicular pain History of Current Condition Pt is a 54 year old male presenting with a multi-year history of low back pain, however episodes have become more severe and more frequent over the past six months. Pt reports he used to gave episodes of low back pain about once a year, it would be sore for a few days, and then I'd get over it. Reports that since last April, when he had a bad episode, it has felt much more stiff and sore consistently, with more frequent episodes of flare-ups , in addition to occasional radicular symptoms in his left . 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 PT-OP-C Subjective Start: 10/16/24 17:16 Freq: Status: Active Protocol: Document 10/18/24 11:30 DCW (Rec: 10/18/24 12:16 DCW [id number]) OP-PT Subjective Patient Comments Patient Comments I think the exercises are helping already. PT-OP-F Manual Assessment Start: 10/16/24 17:16 Freq: Status: Active Protocol: Document 10/16/24 15:15 DCW (Rec: 10/16/24 17:48 DCW [id number]) Manual Assessments Soft Tissue Assessment Soft Tissue Mobility Assessment Moderate tone with tenderness to palpation 2/4: Pain with wincing along lumbar paraspinals, bilateral piriformis Joint Mobility Assessment Joint Mobility Assessment Mild lumbar hypomobility PT-OP-L Special Tests Start: 10/16/24 17:16 Freq: Status: Active Protocol: Document 10/16/24 15:15 DCW (Rec: 10/16/24 17:48 DCW [id number]) Special Tests Lumbar Spine Special Tests ESAU Test Results Positive L ipsilateral pain Straight Leg Raise Test Results Negative Slump Test Results Negative Compression Test Results Negative A-P Shearing Test Results Negative PT-OP-M Strength Start: 10/16/24 17:16 Freq: Status: Active Protocol: Document 10/16/24 15:15 DCW (Rec: 10/16/24 17:48 DCW [id number]) Hip Strength Hip Manual Muscle Testing Right Flexion (L2) 5 Normal Abduction 5 Normal Adduction 5 Normal External Rotation 5 Normal Internal Rotation 5 Normal Left Flexion (L2) 5 Normal Abduction 5 Normal Adduction 5 Normal External Rotation 5 Normal Internal Rotation 5 Normal PT-OP-Q Treatments Start: 10/16/24 17:16 Freq: Status: Active Protocol: Document 10/18/24 11:30 DCW (Rec: 10/18/24 12:16 DCW [id number]) Gym Equipment Therapeutic Ball Trunk Rotation Exercise Details Resisted Trunk Rotation Ball Size/Color Red - 75 cm Lv 3 T-band Pelvic Tilts Exercise Details Pelvic tilts/circles Ball Size/Color Red - 75 cm Body Position Sitting Bridging Exercise Details Bridging /c feet on ball Ball Size/Color Red - 55 cm Body Position Supine Abdominal Ball Squeeze Exercise Details Squeeze T-ball into abdomen Ball Size/Color Red - 55 cm Body Position Hooklying Reps/Duration 5 hold Therapeutic Exercises Supine Exercises SLR Supine Exercise Name SLR /c TrA bracing Marching Supine Exercise Name Marching /c TrA bracing PPT Supine Exercise Name PPT /c TrA bracing Standing Exercises Hip Hiking Standing Exercise Name Hip Hiking Side bilateral Equipment Used 6 step Manual Therapy Treatment Consent Patient gave verbal consent for manual Yes treatment Soft Tissue Mobilization Piriformis Body Location B Piriformis Mobilization Type Strumming,Sustained Pressure Intensity/Depth Moderate Body Position Sidelying PT-OP-T Assessment and Plan Start: 10/16/24 17:16 Freq: Status: Active Protocol: Document 10/18/24 11:30 DCW (Rec: 10/18/24 12:16 DCW [id number]) Physical Therapy Assessment Impairments Impairments Functional Activities, Functional Mobility,Pain,Soft Tissue Mobility,Tone Goals Two Impairment Pt experiences occasional radicular left leg pain 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 LTG Duration 12/14/24 One Impairment Pt does not have an appropriate HEP Short Term Goal (STG) Pt to be independent and compliant with an appropriate HEP STG Duration 11/16/24 Assessment Summary Assessment Very good response to treatment today, pt feeling exercises so far have been quite helpful. Motivated to continue with HEP. Did require some practice with pelvic tilts to increase separation of movement between pelvis and low back. Physical Therapy Plan Frequency and Duration Frequency of Treatment 2x/Week Plan of Care Start Date 10/16/24 Plan of Care End Date 12/14/24 Therapeutic Interventions Therapeutic Interventions Home Exercise Program,Joint Mobilizations,Manual Therapy, Neuromuscular Re-education, Patient/Caregiver Education, Self-Care/Home Management,Soft Tissue Mobilization, Therapeutic Activities, Therapeutic Exercises Next Visit Focus/Plan Next Note Type Treatment Note Next Visit Plan Lumbar mobility, hip flexibility, progression of HEP
--- NOTE | 2024-10-21 17:48 | PT.OTN ---
Current Diagnoses Other chronic pain (10/21/24) Low back pain, unspecified (10/21/24) Physical Therapy Treatment Note PT-OP-A Visit Information Start: 10/16/24 17:16 Freq: Status: Active Protocol: Document 10/21/24 16:15 DCW (Rec: 10/21/24 17:48 WYW [id number]) Out-Patient Physical Therapy Visit Information Visit Information Visit Type Treatment Note Visit Start Time 16:15 Visit Stop Time 17:00 Visit Number 3 Number of TILE PRESSER Visits 0 Evaluation Information Evaluation Date 10/16/24 PT-OP-B Current Condition Start: 10/16/24 17:16 Freq: Status: Active Protocol: Document 10/16/24 15:15 DCW (Rec: 10/16/24 17:48 WYW [id number]) Current Condition History of Current Condition Onset Date Six months Current Complaints Low back pain/tightness, occasional left radicular pain History of Current Condition Pt is a 54 year old male presenting with a multi-year history of low back pain, however episodes have become more severe and more frequent over the past six months. Pt reports he used to gave episodes of low back pain about once a year, it would be sore for a few days, and then I'd get over it. Reports that since last April, when he had a bad episode, it has felt much more stiff and sore consistently, with more frequent episodes of flare-ups , in addition to occasional radicular symptoms in his left . 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 PT-OP-C Subjective Start: 10/16/24 17:16 Freq: Status: Active Protocol: Document 10/21/24 16:15 DCW (Rec: 10/21/24 17:48 DCW [id number]) OP-PT Subjective Patient Comments Patient Comments It's feeling good, it is. I still have some tightness I'm working through, but the exercises are helping. Notes he has not had any shooting pain in his hip recently. PT-OP-F Manual Assessment Start: 10/16/24 17:16 Freq: Status: Active Protocol: Document 10/16/24 15:15 DCW (Rec: 10/16/24 17:48 DCW [id number]) Manual Assessments Soft Tissue Assessment Soft Tissue Mobility Assessment Moderate tone with tenderness to palpation 2/4: Pain with wincing along lumbar paraspinals, bilateral piriformis Joint Mobility Assessment Joint Mobility Assessment Mild lumbar hypomobility PT-OP-L Special Tests Start: 10/16/24 17:16 Freq: Status: Active Protocol: Document 10/16/24 15:15 DCW (Rec: 10/16/24 17:48 DCW [id number]) Special Tests Lumbar Spine Special Tests ESAU Test Results Positive L ipsilateral pain Straight Leg Raise Test Results Negative Slump Test Results Negative Compression Test Results Negative A-P Shearing Test Results Negative PT-OP-M Strength Start: 10/16/24 17:16 Freq: Status: Active Protocol: Document 10/16/24 15:15 DCW (Rec: 10/16/24 17:48 DCW [id number]) Hip Strength Hip Manual Muscle Testing Right Flexion (L2) 5 Normal Abduction 5 Normal Adduction 5 Normal External Rotation 5 Normal Internal Rotation 5 Normal Left Flexion (L2) 5 Normal Abduction 5 Normal Adduction 5 Normal External Rotation 5 Normal Internal Rotation 5 Normal PT-OP-Q Treatments Start: 10/16/24 17:16 Freq: Status: Active Protocol: Document 10/21/24 16:15 DCW (Rec: 10/21/24 17:48 DCW [id number]) Gym Equipment Therapeutic Ball Bridging Exercise Details Bridging /c feet on ball Ball Size/Color Red - 55 cm Body Position Supine Therapeutic Exercises Sidelying Exercises Triple Threat Sidelying Exercise Name Clam, RClam, Hip Abduction Other Exercises Resisted Ambulation Other Exercise Name Resisted side-Stepping, fwd/ bkwd Resistance Blue loop BOSU Lunge Other Exercise Name BOSU Lunge Side bilateral Equipment Used Blue BOSU Manual Therapy Treatment Soft Tissue Mobilization Piriformis Body Location B Piriformis, Lumbar Paraspinals Mobilization Type Strumming,Sustained Pressure Intensity/Depth Moderate Body Position Prone Joint Mobilizations Lumbar Joint Lumbar vertebrae Direction P->A Grade III Body Position Prone PT-OP-T Assessment and Plan Start: 10/16/24 17:16 Freq: Status: Active Protocol: Document 10/21/24 16:15 DCW (Rec: 10/21/24 17:48 DCW [id number]) Physical Therapy Assessment Impairments Impairments Functional Activities, Functional Mobility,Pain,Soft Tissue Mobility,Tone Goals Two Impairment Pt experiences occasional radicular left leg pain Fpc Goal (LTG) Pt to deny any instances of left-sided radicular pain over a one month time period. LTG Duration 12/14/24 One Impairment Pt does not have an appropriate HEP Short Term Goal (STG) Pt to be independent and compliant with an appropriate HEP STG Duration 11/16/24 Assessment Summary Assessment Pt continues to respond well to therapy, feeling confident with HEP, will likely be discharging to independent program following next visit. Physical Therapy Plan Frequency and Duration Frequency of Treatment 2x/Week Plan of Care Start Date 10/16/24 Plan of Care End Date 12/14/24 Therapeutic Interventions Therapeutic Interventions Home Exercise Program,Joint Mobilizations,Manual Therapy, Neuromuscular Re-education, Patient/Caregiver Education, Self-Care/Home Management,Soft Tissue Mobilization, Therapeutic Activities, Therapeutic Exercises Next Visit Focus/Plan Next Note Type Treatment Note Next Visit Plan Lumbar mobility, hip flexibility, progression of HEP
--- NOTE | 2024-10-25 16:06 | PT.OTN ---
Current Diagnoses Other chronic pain (10/25/24) Low back pain, unspecified (10/25/24) Physical Therapy Treatment Note PT-OP-A Visit Information Start: 10/16/24 17:16 Freq: Status: Active Protocol: Document 10/25/24 15:20 DCW (Rec: 10/25/24 16:05 DCW [id number]) Out-Patient Physical Therapy Visit Information Visit Information Visit Type Discharge Summary Visit Start Time 15:20 Visit Stop Time 16:00 Visit Number 4 Number of GRAIN GRADER Visits 0 Evaluation Information Evaluation Date 10/16/24 PT-OP-B Current Condition Start: 10/16/24 17:16 Freq: Status: Active Protocol: Document 10/16/24 15:15 DCW (Rec: 10/16/24 17:48 DCW [id number]) Current Condition History of Current Condition Onset Date Six months Current Complaints Low back pain/tightness, occasional left radicular pain History of Current Condition Pt is a 54 year old male presenting with a multi-year history of low back pain, however episodes have become more severe and more frequent over the past six months. Pt reports he used to gave episodes of low back pain about once a year, it would be sore for a few days, and then I'd get over it. Reports that since last April, when he had a bad episode, it has felt much more stiff and sore consistently, with more frequent episodes of flare-ups , in addition to occasional radicular symptoms in his left . 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 PT-OP-C Subjective Start: 10/16/24 17:16 Freq: Status: Active Protocol: Document 10/25/24 15:20 DCW (Rec: 10/25/24 16:05 DCW [id number]) OP-PT Subjective Patient Comments Patient Comments It's good. I'm hopeful these are taking my back in the right direction. It's getting better, it's just slow. PT-OP-F Manual Assessment Start: 10/16/24 17:16 Freq: Status: Active Protocol: Document 10/16/24 15:15 DCW (Rec: 10/16/24 17:48 DCW [id number]) Manual Assessments Soft Tissue Assessment Soft Tissue Mobility Assessment Moderate tone with tenderness to palpation 2/4: Pain with wincing along lumbar paraspinals, bilateral piriformis Joint Mobility Assessment Joint Mobility Assessment Mild lumbar hypomobility PT-OP-L Special Tests Start: 10/16/24 17:16 Freq: Status: Active Protocol: Document 10/16/24 15:15 DCW (Rec: 10/16/24 17:48 DCW [id number]) Special Tests Lumbar Spine Special Tests ESAU Test Results Positive L ipsilateral pain Straight Leg Raise Test Results Negative Slump Test Results Negative Compression Test Results Negative A-P Shearing Test Results Negative PT-OP-M Strength Start: 10/16/24 17:16 Freq: Status: Active Protocol: Document 10/16/24 15:15 DCW (Rec: 10/16/24 17:48 DCW [id number]) Hip Strength Hip Manual Muscle Testing Right Flexion (L2) 5 Normal Abduction 5 Normal Adduction 5 Normal External Rotation 5 Normal Internal Rotation 5 Normal Left Flexion (L2) 5 Normal Abduction 5 Normal Adduction 5 Normal External Rotation 5 Normal Internal Rotation 5 Normal PT-OP-Q Treatments Start: 10/16/24 17:16 Freq: Status: Active Protocol: Document 10/25/24 15:20 DCW (Rec: 10/25/24 16:05 DCW [id number]) Gym Equipment Therapeutic Ball Ball Lifts Exercise Details Straight ball lifts, ball lift rotations Ball Size/Color Red - 55 cm Comments Ball squeezed between feet, straight leg Bridging Exercise Details Bridging /c feet on ball Ball Size/Color Red - 55 cm Body Position Supine Comments Added hamstring curls PT-OP-T Assessment and Plan Start: 10/16/24 17:16 Freq: Status: Active Protocol: Document 10/25/24 15:20 DCW (Rec: 10/25/24 16:05 DCW [id number]) Physical Therapy Assessment Impairments Impairments Functional Activities, Functional Mobility,Pain,Soft Tissue Mobility,Tone Goals Two Impairment Pt experiences occasional radicular left leg pain Penitentiary Goal (LTG) Pt to deny any instances of left-sided radicular pain over a one month time period. LTG Duration 12/14/24 One Impairment Pt does not have an appropriate HEP Short Term Goal (STG) Pt to be independent and compliant with an appropriate HEP STG Duration 11/16/24 Assessment Summary Assessment Pt happy with current level of function and knowledge of ongoing issues. Feels comfortable with discharge to independent HEP. Pt notes that he has a follow-up with his PCP in three months, if he continues to have concerns, will request a new referral. Discharge from skilled PT. Physical Therapy Plan Frequency and Duration Frequency of Treatment 2x/Week Plan of Care Start Date 10/16/24 Plan of Care End Date 12/14/24 Therapeutic Interventions Therapeutic Interventions Home Exercise Program,Joint Mobilizations,Manual Therapy, Neuromuscular Re-education, Patient/Caregiver Education, Self-Care/Home Management,Soft Tissue Mobilization, Therapeutic Activities, Therapeutic Exercises Discharge Physical Therapy Discharge Reasons Patient Request Discharge Comments d/c to Independent HEP Next Visit Focus/Plan Next Note Type Discharge Summary
== END 2024-10-29 13:14 | disposition home or self-care (01) ==
LOC: PHYS 15:15
PROVIDERS: Family Provider Family Medicine; PCP Family Medicine; Referring Provider Family Medicine; Visit Provider Family Medicine
DX: M54.50 Low back pain, unspecified (principal); G89.29 Other chronic pain
CPT/HCPCS: 97110; 97112; 97140; 97162

== ENCOUNTER → 2025-06-23 08:19 | Outpatient (CLI) | payer BC, SELFPAY ==
[2025-06-23 09:30] LABS: Add Manual Diff / Slide Review NO; Hematocrit 46.9 % (41-53); Hemoglobin 16.8 g/dL (13.5-17.5); Lymphocytes Absolute Auto 1000 /uL (1100-4500); Mean Corpuscular HGB Conc 35.8 % (30-36); Mean Corpuscular Hemoglobin 32.6 PG (26-34); Mean Corpuscular Volume 91.1 fL (80-100); Platelet Count 200 X10^3/uL (150-400)
[2025-06-23 09:41] LABS: Alanine Aminotransferase 32 IU/L (<50); Albumin 4.5 g/dL (3.5-5.0); Albumin Globulin Ratio 2.0 (1.0-2.8); Alkaline Phosphatase 75 U/L (38-126); Blood Urea Nitrogen 17 mg/dL (9-20); Calcium 9.2 mg/dL (8.4-10.2); Carbon Dioxide 23 mmol/L (22-32); Chloride 105 mmol/L (98-107); Estimated Glomerular Filt Rate > 60 mL/min (>60); Globulin 2.3 g/dL (1.7-4.1); Glucose 115 mg/dL (70-99); HEMOLYSIS 21 (0-50); Potassium 3.9 mmol/L (3.4-5.1); Sodium 139 mmol/L (137-145); Total Protein 6.8 g/dL (6.3-8.2)
[2025-06-25 22:36] LABS: QuantiFERON Mitogen Value >10.00 IU/mL (.); QuantiFERON Nil Value 0.04 IU/mL (.); QuantiFERON TB Gold Plus Negative (Negative); QuantiFERON TB1 Ag Value 0.03 IU/mL (.); QuantiFERON TB2 Ag Value 0.04 IU/mL (.)
== END ==
PROVIDERS: Family Provider Family Medicine; PCP Family Medicine; Referring Provider Physician Assistant; Visit Provider Physician Assistant
DX: L40.0 Psoriasis vulgaris (principal); L40.59 Other psoriatic arthropathy; Z79.899 Other long term (current) drug therapy
CPT/HCPCS: 36415; 80053; 85025; 86480